=== PATIENT | female | born 1985 | race Caucasian/White ===

== ENCOUNTER 2022-05-21 00:03 | Inpatient (IN) | payer OTHER ==
--- NOTE | ~2022-05-21 | OR ---
[facility] [address] [place], [place] [address] Draft DATE OF OPERATION: 05/21/2022 SURGEON: Domenico Ott DO PREOPERATIVE DIAGNOSIS: Obstetric laceration. POSTOPERATIVE DIAGNOSES: Complex third-degree laceration, right vaginal sulcus laceration, advanced maternal age, obesity, , term , delivered. MODELING AGENT: Marinelli. ANESTHESIA: General. BLOOD LOSS: 1000 mL for delivery and repair. INDICATIONS: The patient is a 36-year-old G1, now P1-0-0-1, underwent spontaneous vaginal delivery complicated by perineal tear extending into the anus. The patient underwent natural childbirth without epidural or other pain management, and full assessment in the delivery room was limited by the patient comfort. Risks, benefits, and alternatives to repair under local anesthesia in the delivery room versus under anesthesia in the operating room were discussed due to concern for possible fourth-degree extension. Operative repair was advised. The patient and her partner were in agreement with the plan. Consents were signed. The patient was given 2 g Ancef and she was taken back to the operating room. DESCRIPTION OF PROCEDURE: The patient was placed under general anesthesia and positioned in dorsal lithotomy with SCDs in place. She was prepped with Betadine, however, due to obvious persistent bleeding, prep was expedited and she was draped in normal sterile fashion. Rectal exam confirmed third-degree laceration as well as a deep right vaginal sulcal tear with persistent bleeding. Vaginal sulcal tear was noted to be bleeding more significantly and was addressed first. Brandon was secured with 3-0 Vicryl and tear was reapproximated in a running fashion. Excellent hemostasis was noted following this repair, however, due to concern for potential space, FloSeal was infused. Attention was then turned to PATIENT NAME: UBALDO WAGNER OPERATIVE REPORT DATE OF : [birth year] REPORT #: [id number] PHYSICIAN: DOMENICO OTT DO PCP: NO PRIMARY CARE PHYSICIAN REPORT IS CONFIDENTIAL AND NOT TO BE RELEASED WITHOUT AUTHORIZATION [facility] [address] [place], [place] [address] Draft the internal rectal sphincter, which was reapproximated in imbricating manner with 3-0 Vicryl working from the apex towards the external anal sphincter. Once this was complete, external anal sphincter was repaired end-to-end with 2-0 Vicryl. Anal sphincter mucosa was reapproximated with 3-0 Vicryl and final second-degree repair was completed with 3-0 Vicryl with excellent hemostasis and reapproximation of tissues noted following repair. Uterus was Crede'd and noted to have some blood clots present. A 1 g TXA was administered. Coagulation panel withdrawn. The patient was noted to be hemodynamically stable. Sponge and instrument counts were correct and the patient was transported to PACU in stable and satisfactory condition. DO NICOLE Acosta/MODL /[id number] Copies: ~ PATIENT NAME: UBALDO WAGNER RANDELL OPERATIVE REPORT DATE OF : [birth year] REPORT #: [id number] PHYSICIAN: DOMENICO OTT DO PCP: NO PRIMARY CARE PHYSICIAN REPORT IS CONFIDENTIAL AND NOT TO BE RELEASED WITHOUT AUTHORIZATION
--- NOTE | 2022-05-21 09:22 | PR ---
[facility] [address] [facility] [place], [place] [address] Signed Progress Notes IP Datetime Report Generated by CPN: 05/21/2022 09:22 PROGRESS NOTES: [id number] Impression: Normal Progression of Labor Procedures: Artificial ROM Plan: Continue Present Management VITAL SIGNS: [id number] EXAM: [id number] Dilatation: 3.0 Effacement: 80 Station: -2 MEMBRANES: [id number] Membranes Status: Ruptured Comments: Pt s/p cytotec x 2, progressing well AROM performed without difficulty yielding large to copious amount clear fluid Anticipate recheck in 1-2 hours, discussed low-dose pitocin if needed FETUS A: [id number] Presentation: Vertex FETUS B: [id number] Signing Physician: Domenico Ott DO Copies: ~ *Electronically Signed* 05/21/22921 DOMENICO OTT DO PATIENT NAME: UBALDO WAGNER PROGRESS NOTE DATE OF : [birth year] PHYSICIAN: DOMENICO OTT DO RPT #: [id number] REPORT IS CONFIDENTIAL AND NOT TO BE RELEASED WITHOUT AUTHORIZATION
--- NOTE | 2022-05-21 16:40 | NUR ---
05/21/22 1640 Sheets,Yanci 1553 PT ARRIVED TO PACU ON 6L VIA MASK, PT REACTIVE AND DENIES PAIN. RESP EVEN AND UNLABORED.
--- NOTE | 2022-05-22 11:31 | PR ---
[facility] [address] [place], [place] [address] Signed PP Progress Notes Datetime Report Generated by CPN: 05/22/2022 11:31 SUBJECTIVE: [id number] Pain: Within Normal Limits Nausea/Vomiting: Denies Flatus: Yes Bowel Movement: No Vital Signs: [id number] Vital Signs: Reviewed; Within Normal Limits Cardiovascular: Normal Respiratory: Normal Abdomen/Uterus: Normal Lochia: Normal Extremities: Normal Progress: Normal Exam Comments: NAD sitting in chair at bedside RRR No dyspnea/ retractions Abd SNTND, FFBU Ext: trace edema IMPRESSION/PLAN/PROCEDURES: [id number] Impression: Normal Progression Plan: Continue Present Management Procedures: Rubella Progress Notes: Pt is a 36 yo PPD#1 s/p with 3rd degree tear and repair in OR -hgb 10.5 PPD#1 from 14.2 on admission -on [facility], using ice/ tucks/ epifoam for perineal pain mgmt. Reviewed importance of stools being soft but formed -h/o depression Ok to start sitz baths once 24h post-repair Start zoloft 25mp po daily as previously discussed Baby ABO type AB neg, no rhogam indicated MMR prior to discharge Anticipate discharge tomorrow Signing Physician: Domenico Ott DO *Electronically Signed* 05/22/22 1051 DOMENICO OTT DO PATIENT NAME: UBALDO WAGNER PROGRESS NOTE DATE OF : [birth year] PHYSICIAN: DOMENICO OTT DO RPT #: [id number] REPORT IS CONFIDENTIAL AND NOT TO BE RELEASED WITHOUT AUTHORIZATION [facility] [address] [place], [place] [address] Signed Copies: ~ *Electronically Signed* 05/22/22 1131 DOMENICO OTT DO PATIENT NAME: UBALDO WAGNER PROGRESS NOTE DATE OF : [birth year] PHYSICIAN: DOMENICO OTT DO RPT #: [id number] REPORT IS CONFIDENTIAL AND NOT TO BE RELEASED WITHOUT AUTHORIZATION
--- NOTE | 2022-05-23 08:17 | PR ---
[facility] [address] [place], [place] [address] Signed PP Progress Notes Datetime Report Generated by CPN: 05/23/2022 08:17 SUBJECTIVE: [id number] Pain: Within Normal Limits Nausea/Vomiting: Denies Flatus: Yes Bowel Movement: No Vital Signs: [id number] Vital Signs: Reviewed; Within Normal Limits Cardiovascular: Normal Respiratory: Normal Abdomen/Uterus: Normal Lochia: Normal Vulva/Perineum: Normal Breasts: Normal Extremities: Normal Progress: Normal Exam Comments: NAD, sitting up in bed RRR No dyspnea/ retractions Abd SNTND, FFBU Perineum: no ecchymosis or erythema, healing well, no evidence of breakdown or infection. IMPRESSION/PLAN/PROCEDURES: [id number] Impression: Normal Progression Plan: Continue Present Management; Discharge Procedures: Rubella Progress Notes: 36 yo PPD#2 s/p complicated by 3rd degree laceration -progressing well : ambulating, voiding, tolerating regular diet. Pain controlled with tylenol and occasional oxycodone. +flatus, not yet BM. lochia light. - well after consult yesterday, outpatient follow-up scheduled for Friday Anticipate DC to home today NFP for contraception Recheck in office in 2 weeks Signing Physician: Domenico Ott DO *Electronically Signed* 05/23/22816 DOMENICO OTT DO PATIENT NAME: UBALDO WAGNER PROGRESS NOTE DATE OF : [birth year] PHYSICIAN: DOMENICO OTT DO RPT #: [id number] REPORT IS CONFIDENTIAL AND NOT TO BE RELEASED WITHOUT AUTHORIZATION [facility] [address] [place] [id number] Signed Copies: ~ *Electronically Signed* 05/23/22 08 DOMENICO OTT DO PATIENT NAME: UBALDO WAGNER PROGRESS NOTE DATE OF : [birth year] PHYSICIAN: DOMENICO OTT DO RPT #: [id number] REPORT IS CONFIDENTIAL AND NOT TO BE RELEASED WITHOUT AUTHORIZATION
== END 2022-05-23 12:55 | disposition home or self-care (01) | DRG 768 ==
LOC: FBC 00:03
PROVIDERS: ADMIT Obstetrics & Gynecology; ATTEND Obstetrics & Gynecology
PROC: 0DQR0ZZ Repair Anal Sphincter, Open Approach (ICD-10-PCS; 2022-05-21)
PROC: 3E0P7VZ Introduction of Hormone into Female Reproductive, Via Natural or Artificial Opening (ICD-10-PCS; 2022-05-21)
PROC: 10907ZC Drainage of Amniotic Fluid, Therapeutic from Products of Conception, Via Natural or Artificial Opening (ICD-10-PCS; 2022-05-21)
PROC: 10E0XZZ Delivery of Products of Conception, External Approach (ICD-10-PCS; principal; 2022-05-21 14:44)
DX: O99.344 Other mental disorders complicating childbirth (principal); Z37.0 Single live birth; O98.32 Other infections with a predominantly sexual mode of transmission complicating childbirth; O70.20 Third degree perineal laceration during delivery, unspecified; O72.1 Other immediate postpartum hemorrhage; O26.893 Other specified pregnancy related conditions, third trimester; A60.00 Herpesviral infection of urogenital system, unspecified; O99.214 Obesity complicating childbirth; F41.9 Anxiety disorder, unspecified; F32.A Depression, unspecified; Z67.21 Type B blood, Rh negative; Z3A.39 39 weeks gestation of pregnancy
CPT/HCPCS: 36415; 83030; 85027; 85384; 85610; 85730; 86850; 86900; 86901; 90707; A9270; J0131; J0330; J0690; J1100; J2001; J2210; J2405; J2704; J2790; J3010; J7121

== ENCOUNTER 2024-07-20 09:05 | Observation (INO) | payer OTHER ==
[~2024-07-20 09:05] MED LIST: LEXAPRO10 MG PO; LEXAPRO5 MG; PRENATAL TABLE1 EACH PO; VITAMIN D325 MC2 PO
[2024-07-20] MEDS ORDERED: VALACYCLOVIR HCL 500 MG TAB PO ONE (19:15)
[2024-07-20] MEDS ORDERED: ACETAMINOPHEN 500 MG TAB PO PRN (19:15)
== END 2024-07-21 09:08 | disposition home or self-care (01) ==
LOC: FBCO 09:05 → FBC 13:50
PROVIDERS: ADMIT Student in an Organized Health Care Education/Training Program; ATTEND Obstetrics & Gynecology
DX: Z04.3 Encounter for examination and observation following other accident (principal); W00.0XXA Fall on same level due to ice and snow, initial encounter; Z3A.38 38 weeks gestation of pregnancy
CPT/HCPCS: 59025; A9270; G0378; G0463

== ENCOUNTER 2024-07-28 06:05 | Inpatient (IN) | payer OTHER ==
[~2024-07-28] VITALS: Ht 175.3 cm; Wt 127.5 kg
[2024-07-28] MEDS ORDERED: OXYTOCIN/0.9 % SODIUM CHLORIDE 30 UNITS/500 ML BAG IV SCH (06:30)
[2024-07-28] MEDS ORDERED: LACTATED RINGER'S 1,000 ML IV PRN (06:30)
[2024-07-28] MEDS ORDERED: MAGNESIUM HYDROXIDE/AL HYDROX 30 ML CUP PO PRN ×2 (06:30→17:45)
[2024-07-28] MEDS ORDERED: CALCIUM CARBONATE 500 MG CHEW PO PRN ×2 (06:30→17:45)
[2024-07-28 06:50] LABS: AMPHETAMINES, URINE NEGATIVE (NEGATIVE); BARBITURATES, URINE NEGATIVE (NEGATIVE); BENZODIAZEPINE, URINE NEGATIVE (NEGATIVE); BUPRENORPHINE, URINE NEGATIVE (NEGATIVE); CANNABINOID, URINE NEGATIVE (NEGATIVE); COCAINE, URINE NEGATIVE (NEGATIVE); ECSTASY, URINE NEGATIVE (NEGATIVE); FENTANYL, URINE NEGATIVE (NEGATIVE); METHADONE, URINE NEGATIVE (NEGATIVE); OPIATES, URINE NEGATIVE (NEGATIVE); OXYCODONE, URINE NEGATIVE (NEGATIVE); PHENCYCLIDINE, URINE NEGATIVE (NEGATIVE)
[2024-07-28 06:54] VITALS: BP 135/90
[2024-07-28 07:00] LABS: HEMATOCRIT 37.2 % (35.0-50.0); HEMOGLOBIN 12.4 g/dL (12.0-18.0); MCHC 33.3 g/dl (30-36); MCV 81.1 fl (81-99); RBC 4.58 M/ul (4.3-5.7); RDW 17.8 (10.5-15.0)
[2024-07-28 07:39] LABS: ABO B; ANTIBODY SCREEN NEGATIVE; RH NEGATIVE
[2024-07-28] MEDS ORDERED: OXYTOCIN/0.9 % SODIUM CHLORIDE 500 ML IV SCH ×2 (09:15→17:45)
[2024-07-28 09:16] LABS: CREATININE, RANDOM URINE 145.92 mg/dL (NOT ESTABLISHED); PROTEIN/CREATININE RATIO 0.21 mg/mg (0.010-0.107)
[2024-07-28 09:28] LABS: ALBUMIN 2.3 g/dL (3.4-5.0); ALBUMIN/GLOBULIN RATIO 0.56 (1.1-2.4); ANION GAP 15.1 (7-21); BILIRUBIN, TOTAL 0.3 mg/dL (0.2-1.0); BUN/CREATININE RATIO 16.66 (6.0-28.6); CALCIUM 9.1 mg/dL (8.5-10.1); CREATININE, SERUM 0.54 mg/dL (0.55-1.02); POTASSIUM 4.1 mmol/L (3.5-5.1); PROTEIN, TOTAL 6.4 g/dL (6.4-8.2)
[2024-07-28] MEDS ORDERED: ROPIVACAINE 0.2% 200 ML BAG ONE (13:26)
[2024-07-28] MEDS ORDERED: LACTATED RINGER'S 2,000 ML IV ONE (14:15)
[2024-07-28] MEDS ORDERED: ePHEDrine sulfate 5 MG/ML SYRINGE IV PRN (14:15)
[2024-07-28] MEDS ORDERED: LACTATED RINGER'S 500 ML IV PRN (14:15)
[2024-07-28] MEDS ORDERED: ROPIVACAINE 0.2% 200 ML BAG EPIDURAL SCH (14:15)
[2024-07-28] MEDS ORDERED: BENZOCAINE 60 ML AEROSOL TOP PRN (17:45)
[2024-07-28] MEDS ORDERED: ACETAMINOPHEN 325 MG TAB PO PRN (17:45)
[2024-07-28] MEDS ORDERED: HYDROCORTISONE ACETATE 25 MG SUPP PR PRN (17:45)
[2024-07-28] MEDS ORDERED: LIDOCAINE 2% VISCOUS 6 ML SYR TOP ONE ×2 (17:45)
[2024-07-28] MEDS ORDERED: AMP/SULBACTAM SOD 1.5 GM in SODIUM CHLORIDE 0.9% 100 ML IV ONE (17:45)
[2024-07-28] MEDS ORDERED: IBUPROFEN 600 MG TAB PO PRN (17:45)
[2024-07-28] MEDS ORDERED: WITCH HAZEL/GLYCERIN 1 EA PAD TOP PRN (17:45)
[2024-07-28] MEDS ORDERED: MAGNESIUM HYDROXIDE 30 ML UDC PO PRN (17:45)
[2024-07-28] MEDS ORDERED: SENNOSIDES/DOCUSATE 1 EA TAB PO SCH (21:00)
[2024-07-28] MEDS ORDERED: SERTRALINE HCL 50 MG TAB PO SCH (21:45)
--- NOTE | 2024-07-29 09:03 | PR ---
[facility] [address] [facility] [place], [place] [address] Signed PP Progress Notes Datetime Report Generated by CPN: 07/29/2024 09:03 SUBJECTIVE: [id number] Pain: Within Normal Limits Nausea/Vomiting: Denies Flatus: Yes Bowel Movement: No Vital Signs: [id number] Vital Signs: Reviewed Notable Details: Mildly elevated BP this AM - will monitor EXAM: Ongoing Cardiovascular: Normal Respiratory: Normal Abdomen/Uterus: Normal Lochia: Normal Vulva/Perineum: Not Done Breasts: Not Done CVA Tenderness: Normal Extremities: Normal Incision: Not Applicable Progress: Normal Exam Comments: Fundus firm U-2 nontender. IMPRESSION/PLAN/PROCEDURES: [id number] Impression: Normal Progression Progress Notes: Pt seen and examined. Doing well. Ambulating, voiding, and tolerating full diet. Pain and lochia minimal. Mildly elevated BPs this AM; will monitor. Consider d/c home today vs tomorrow. Signing Physician: Renetta Marinelli DO Copies: ~ *Electronically Signed* 07/29/24 0903 RENETTA MARINELLI (KASH) DO PATIENT NAME: UBALDO WAGNER PROGRESS NOTE DATE OF : 87 PHYSICIAN: RENETTA MARINELLI (KASH) DO RPT #: [id number] REPORT IS CONFIDENTIAL AND NOT TO BE RELEASED WITHOUT AUTHORIZATION
[2024-07-29 10:26] LABS: ABO B; ANTIBODY SCREEN NEGATIVE; RH NEGATIVE
[2024-07-29 11:56] LABS: FETAL HEMOGLOBIN SCREEN NEGATIVE; RHIG VIAL 1 RG24K02-J
[2024-07-29 11:57] LABS: RHIG DOSE 1; RHIG STATUS CANIDATE
--- NOTE | 2024-07-30 07:44 | PR ---
[facility] [address] [place], [place] [address] Signed PP Progress Notes Datetime Report Generated by SHAMA: 07/30/2024 07:44 SUBJECTIVE: [id number] Pain: Within Normal Limits Nausea/Vomiting: Denies Flatus: Yes Bowel Movement: No Vital Signs: [id number] Vital Signs: Reviewed Notable Details: Improved BPs EXAM: Ongoing Cardiovascular: Normal Respiratory: Normal Abdomen/Uterus: Normal Lochia: Not Done Vulva/Perineum: Not Done Breasts: Not Done CVA Tenderness: Normal Extremities: Normal Incision: Not Applicable Progress: Normal Exam Comments: Fundus firm U-2 nontender IMPRESSION/PLAN/PROCEDURES: [id number] Impression: Normal Progression Plan: Discharge Progress Notes: Pt seen and examined. Doing well. Ambulating, voiding, and tolerating full diet. Pain and lochia minimal. well. No fevers/chills. BPs somewhat elevated overnight but normal w/ better fitting cuff per RN. Reviewed s/sx PreE w/ pt and will have pt f/u for BP check in 2 days. Consider procardia XL 30mg po daily if elevated. Pt will also check BP once daily at home w/ home cuff and will call if sustained eleated >140 / 90. BP check in 2 days. Stop methimazole and will recheck TSH at 6 wk pp visit. Vasectomy / IUD for pp contraception. Reviewed d/c instructions in detail and all questions answered. Signing Physician: Renetta Marinelli DO *Electronically Signed* 07/30/24 0720 RENETTA MARINELLI) DO PATIENT NAME: UBALDO WAGNER RANDELL PROGRESS NOTE DATE OF : 87 PHYSICIAN: RENETTA MARINELLI) DO RPT #: [id number] REPORT IS CONFIDENTIAL AND NOT TO BE RELEASED WITHOUT AUTHORIZATION
--- NOTE | 2024-08-02 12:10 | PATH ---
[facility] [address] [place], [place] [address] Signed SPECIMEN(S): A PLACENTA SPECIMEN SOURCE: A. PLACENTA CLINICAL HISTORY: Cord avulsion FINAL PATHOLOGIC DIAGNOSIS: Placenta, delivery: - Mature carlin placenta with three-vessel umbilical cord (582 grams) - Avascular villi, small foci BRP MICROSCOPIC EXAMINATION: Histologic sections of all submitted blocks are examined by light microscopy. These findings, together with the gross examination, support the pathologic diagnosis. GROSS DESCRIPTION: The specimen, labeled and designated "Billie Ravi, placenta," is received fresh and placed in formalin and consists of carlin discoid placenta with the following parameters: Umbilical cord: Insertion eccentric, measurement 9.2 x 1.2 cm; trivascular. The additional cord segment measures 54.2 x 1.1 cm. Cord coiling index (per 10 cm): 5. Lesions: Not grossly identified although there is a tear in the umbilical cord between the 2 segments.. Membranes: Insertion site: Marginal, fox/translucent. Intact. Other: Not grossly identified. Chorionic Plate: Normal radiating vascular pattern, blue-purple and shiny. Lesions: Not grossly identified. Other: Not grossly identified. Maternal Surface: Normal cotyledons, 10% disrupted. Lesions: Not grossly identified. Measurement: 21.4 x 17.5 x 2.6 cm. 582 g Cut Surface: Maroon and spongy. Lesions: Not grossly identified. Basal plate fibrin 0.1 cm in thickness. Other Findings: Not grossly identified. Cassette Summary: (A1) membranes and umbilical cord (A2) placenta parenchyma PATIENT NAME: UBALDO RAVI PATHOLOGY DATE OF : 87 REPORT #: [id number] PHYSICIAN: JOHNNY BECK PCP: LORENZO GARCIA PAC REPORT IS CONFIDENTIAL AND NOT TO BE RELEASED WITHOUT AUTHORIZATION [facility] [address] [place], [place] [address] Signed (A3) placenta parenchyma (A4) placenta parenchyma AA (under the direct supervision of a pathologist) The Gross Description was prepared using a voice recognition system. The report was reviewed for accuracy; however, sound-alike word errors, addition and/or deletions may occur. If there is any question about this report, please contact Client Services. ADDITIONAL NOTES: Immunohistochemical and/or in situ hybridization studies if performed in this case included appropriate positive controls that reacted as expected. This test was developed and its performance characteristics determined by [facility]. It has not been cleared or approved by the U.S. Food and Drug Administration. The FDA has determined that such clearance or approval is not necessary. This test is used for clinical purposes. It should not be regarded as investigational or for research. [facility] is certified under the Clinical Laboratory Improvement Amendments of 1988 (CLIA) as qualified to perform high complexity clinical laboratory testing. PERFORMING LABORATORY: Technical component was performed by [facility], [address] [place] [id number] (CLIA# [id number]). Professional interpretation was performed by [facility], [address] [place] [address] (CLIA#: [id number]). Diagnostician: Marco Cain MD Pathologist Electronically Signed 08/02/2024 Copies: ~ PATIENT NAME: UBALDO RAVI RANDELL PATHOLOGY DATE OF : 87 REPORT #: [id number] PHYSICIAN: JOHNNY PATHOLOGY PCP: LORENZO GARCIA PAC REPORT IS CONFIDENTIAL AND NOT TO BE RELEASED WITHOUT AUTHORIZATION
== END 2024-07-30 10:05 | disposition home or self-care (01) | DRG 806 ==
LOC: FBC 06:05
PROVIDERS: Obstetrics & Gynecology; ADMIT Advanced Practice Midwife; ATTEND Advanced Practice Midwife
PROC: 3E033VJ Introduction of Other Hormone into Peripheral Vein, Percutaneous Approach (ICD-10-PCS; principal; 2024-07-28)
PROC: 00HU33Z Insertion of Infusion Device into Spinal Canal, Percutaneous Approach (ICD-10-PCS; principal; 2024-07-28)
PROC: 0KQM0ZZ Repair Perineum Muscle, Open Approach (ICD-10-PCS; principal; 2024-07-28)
PROC: 3E0R3BZ Introduction of Anesthetic Agent into Spinal Canal, Percutaneous Approach (ICD-10-PCS; principal; 2024-07-28)
PROC: 10E0XZZ Delivery of Products of Conception, External Approach (ICD-10-PCS; principal; 2024-07-28)
DX: O99.214 Obesity complicating childbirth (principal); O98.32 Other infections with a predominantly sexual mode of transmission complicating childbirth; Z37.0 Single live birth; O99.354 Diseases of the nervous system complicating childbirth; O69.1XX0 Labor and delivery complicated by cord around neck, with compression, not applicable or unspecified; O70.1 Second degree perineal laceration during delivery; A60.00 Herpesviral infection of urogenital system, unspecified; Z67.21 Type B blood, Rh negative; O26.893 Other specified pregnancy related conditions, third trimester; G43.109 Migraine with aura, not intractable, without status migrainosus; O99.284 Endocrine, nutritional and metabolic diseases complicating childbirth; E04.1 Nontoxic single thyroid nodule; Z3A.39 39 weeks gestation of pregnancy; Z79.899 Other long term (current) drug therapy
CPT/HCPCS: 01960; 36415; 80053; 80307; 82570; 83030; 84156; 85027; 86850; 86900; 86901; A9270; J0295; J2790; J7121